=== PATIENT | female | born 1995 | race African-American/Black ===

== ENCOUNTER 2019-03-21 13:29 | Emergency (ER) | payer SELFPAY ==
[~2019-03-21] VITALS: Ht 160 cm; Wt 81.8 kg
[2019-03-21 13:33] VITALS: BP 121/74
[2019-03-21] MEDS ORDERED: ALBU8HFA IH (13:37)
== END 2019-03-21 15:54 | disposition left against medical advice (07) ==
LOC: EMS 13:30
DX: J45.909 Unspecified asthma, uncomplicated (principal); Z79.899 Other long term (current) drug therapy; Z53.20 Procedure and treatment not carried out because of patient's decision for unspecified reasons